=== PATIENT | female | born 1945 | race Asian ===

== ENCOUNTER → 2016-07-27 | Outpatient (CLI) | payer OTHER, MEDICAID | LOC: BMCIMAGING 10:27 | PROVIDERS: ATTEND Internal Medicine | DX: Z13.820 Encounter for screening for osteoporosis (principal); E21.0 Primary hyperparathyroidism ==

== ENCOUNTER 2016-10-11 05:56 | Emergency (ER) | payer OTHER, MEDICAID ==
--- NOTE | 2016-10-11 06:43 | EDPHY ---
H & P Stated Complaint: pt states she wants to stay here to sleep & not get others sick Time Seen by Provider: 10/11/16 06:29 HPI/ROS: Chief Complaint: Cough, cold HPI: 71-year-old resident of a [facility] presenting complaining of an upper respiratory symptoms for the past few days. Patient has had some fevers and chills at home. A cough which has been productive of some yellowish sputum. No chest pain or shortness of breath. She is concerned about getting other residents of the home sick. ROS: 10 point Review of Systems is negative except as noted in the HPI. PMH: Congestive heart failure, pulmonary hypertension, schizoaffective disorder Social History: Positive smoking, occasional alcohol, no recreational drug use Family History: non-contributory Physical Exam: Gen: Awake, Alert, No Distress HEENT: Nose: no rhinorrhea Eyes: PERRLA, EOMI Mouth: Moist mucosa Neck: Supple, no JVD Chest: nontender, lungs clear to auscultation Heart: S1, S2 normal, no murmur Abd: Soft, non-tender, no guarding Back: no CVA tenderness, no midline tenderness Ext: no edema, non-tender Skin: no rash Neuro: CN II-XII intact, Sensation grossly intact, Strength 5/5 in bilateral upper and lower extremities - Personal History Current Tetanus Diphtheria and Acellular Pertussis (TDAP): Yes - Medical/Surgical History Hx Asthma: No Hx Chronic Respiratory Disease: No Hx Diabetes: No Hx Cardiac Disease: No Hx Renal Disease: No Hx Cirrhosis: No Hx Alcoholism: No Hx HIV/AIDS: No Hx Splenectomy or Spleen Trauma: No Other PMH: BIPOLAR, HTN, ANXIETY, SLEEP APNEA,SCIATICA, pulmonary htn - Social History Smoking Status: Former smoker Constitutional: Initial Vital Signs Temperature (C) 37 C 10/11/16 06:05 Heart Rate 80 10/11/16 06:05 Respiratory Rate 22 H 10/11/16 06:05 Blood Pressure 132/93 H 10/11/16 06:05 O2 Sat (%) 95 10/11/16 06:05 O2 Delivery Mode Room Air Allergies/Adverse Reactions: lamotrigine [From Lamictal] Allergy (Verified 10/29/10 14:14) modafinil [From Provigil] Allergy (Verified 10/29/10 14:14) Home Medications: Medication Instructions Recorded clonazePAM [Klonopin (*)] 0.5 mg PO HS PRN 08/21/12 Calcium Carbonate/Vitamin D3 1 each PO DAILY 01/30/14 [Calcium 500 + Vit D Caplet] Ibuprofen [Motrin (*)] 400 mg PO Q12 PRN 01/30/14 Melatonin [Melatonin 3 MG (*)] 3 mg PO HS PRN 01/30/14 Pantoprazole Sodium [Protonix 40mg 40 mg PO DAILY 01/30/14 (*)] Polyethylene Glycol 3350 [Miralax 17 gm PO DAILY PRN 01/30/14 17 gm (*)] oxyCODONE/APAP 5/325 [Percocet 1 tab PO BID 01/30/14 5/325 (*)] Fluticasone Nasal [Flonase Nasal 1 sprays [place] DAILY PRN 03/04/15 [place]] [place] Carbonate ER [Lithobid 300 600 mg PO HS 03/04/15 mg (*)] Zolpidem Tartrate [Ambien 10 mg] 5 mg PO HS PRN #0 tablet 03/10/15 Medical Decision Making ED Course/Re-evaluation: Well-appearing 71-year-old woman with symptoms consistent with a viral upper respiratory infection. She has no focal findings on her lung exam. She is not hypoxemic on room air but she does use oxygen. Will send her home with instructions to follow up with primary care physician. No indication for antibiotics at this time. She is afebrile. Departure - Departure Disposition: Home, Routine, Self-Care Clinical Impression: URI (upper respiratory infection) Condition: Good Instructions: Upper Respiratory Infection (ED) Additional Instructions: Wash your hands frequently used hand substance addiction coordinator. Wear a mask when you with other people. Follow up with primary care physician in 2-3 days for re-evaluation. Return to the emergency department for increasing cough, shortness of breath, fevers, chills, or any other concerns. Referrals: Toyin Garcia MD [Primary Care Provider] - As per Instructions
[2016-10-11 07:20] VITALS: BP 136/76; PULSE 72; RESP 17; TEMP 97.9; O2SAT 94
== END 2016-10-11 07:21 | disposition home or self-care (01) ==
DX: J06.9 Acute upper respiratory infection, unspecified (principal); I11.0 Hypertensive heart disease with heart failure; I50.9 Heart failure, unspecified; Z87.891 Personal history of nicotine dependence

== ENCOUNTER 2016-10-12 05:33 | Emergency (ER) | payer OTHER, MEDICAID ==
--- NOTE | 2016-10-12 05:42 | EDPHY ---
H & P - Medical/Surgical History Hx Asthma: No Hx Chronic Respiratory Disease: No Hx Diabetes: No Hx Cardiac Disease: No Hx Renal Disease: No Hx Cirrhosis: No Hx Alcoholism: No Hx HIV/AIDS: No Hx Splenectomy or Spleen Trauma: No Other PMH: BIPOLAR, HTN, ANXIETY, SLEEP APNEA,SCIATICA, pulmonary htn - Social History Smoking Status: Former smoker Time Seen by Provider: 10/12/16 05:37 HPI/ROS: Chief Complaint: Suicidal, manic HPI: 71-year-old woman with a history of bipolar disorder being brought in by police on a mental health hold after multiple calls to them overnight and threatening suicidality. Patient was reportedly ongoing a knife to her neck stating she was going to kill herself. Patient has made multiple complaints to police overnight stating that staff members at her residence are trying to harm her. Patient states that she has not been taking her medications. Patient also states she want to be given benzodiazepine to help her sleep. Patient seen by me yesterday morning with cold type symptoms. No evidence of acute bacterial infection at that time. Patient denies fevers or chills. Has a dry nonproductive cough. No chest pain or shortness of breath. Does have a history of pulmonary hypertension. ROS: 10 point Review of Systems is negative except as noted in the HPI. Social History: History of smoking, denies alcohol Family History: non-contributory Physical Exam: Gen: Awake, Alert, pressured speech, tangential HEENT: Nose: no rhinorrhea Eyes: PERRLA, EOMI Mouth: Moist mucosa Neck: Supple, no JVD Chest: nontender, lungs clear to auscultation Heart: S1, S2 normal, no murmur Abd: Soft, non-tender, no guarding Back: no CVA tenderness, no midline tenderness Ext: no edema, non-tender Skin: no rash Neuro: CN II-XII intact, Sensation grossly intact, Strength 5/5 in bilateral upper and lower extremities (Gt Mcfarland) Constitutional: Initial Vital Signs Temperature (C) 36.7 C 10/12/16 05:46 Heart Rate 87 10/12/16 05:46 Respiratory Rate 20 10/12/16 05:46 O2 Sat (%) 94 10/12/16 05:46 O2 Delivery Mode Room Air O2 (L/minute) 2 Allergies/Adverse Reactions: lamotrigine [From Lamictal] Allergy (Verified 10/12/16 05:42) modafinil [From Provigil] Allergy (Verified 10/12/16 05:42) Home Medications: Medication Instructions Recorded clonazePAM [Klonopin (*)] 0.5 mg PO HS PRN 08/21/12 Calcium Carbonate/Vitamin D3 1 each PO DAILY 01/30/14 [Calcium 500 + Vit D Caplet] Ibuprofen [Motrin (*)] 400 mg PO Q12 PRN 01/30/14 Melatonin [Melatonin 3 MG (*)] 3 mg PO HS PRN 01/30/14 Pantoprazole Sodium [Protonix 40mg 40 mg PO DAILY 01/30/14 (*)] Polyethylene Glycol 3350 [Miralax 17 gm PO DAILY PRN 01/30/14 17 gm (*)] oxyCODONE/APAP 5/325 [Percocet 1 tab PO BID 01/30/14 5/325 (*)] Fluticasone Nasal [Flonase Nasal 1 sprays EACHNARE DAILY PRN 03/04/15 [place]] [place] Carbonate ER [Lithobid 300 600 mg PO HS 03/04/15 mg (*)] Zolpidem Tartrate [Ambien 10 mg] 5 mg PO HS PRN #0 tablet 03/10/15 Cephalexin [Keflex (*)] 500 mg PO TID #21 cap 10/12/16 Medical Decision Making ED Course/Re-evaluation: 71-year-old with a history of bipolar disorder presenting manic with suicidal statements and threats. She is on a mental health hold by police. Will medically cleared arranged for mental health evaluation. 0700 patient signed out to Dr. Pagan pending mental health evaluation. Patient is medically cleared for evaluation at this time. (Gt Mcfarland) Patient was given her usual Percocet at about 830 this morning. She has also been given her regular medications. 11:15 a.m. patient has been evaluated by mental health and they feel that she would be most appropriate for inpatient management. They are looking for bed placement (Janak Pagan) 5:00 p.m. patient accepted to [facility] by Dr. Mancuso. Transfer paperwork completed. (Baljit Crespo) Differential Diagnosis: Partial list of the Differential diagnosis considered include but were not limited to; bipolar, depression, suicidality and although unlikely based on the history and physical exam, I also considered substance abuse, infection. (Baljit Crespo) Care Turn Over: Dr. Crespo at 1500 (Janak Pagan) - Data Points Laboratory Results: Laboratory Results 10/12/16 05:50 10/12/16 05:50 10/12/16 10/12/16 10/12/16 07:10 07:10 06:00 WBC RBC Hgb Hct MCV MCH MCHC RDW Plt Count MPV Neut % (Auto) Lymph % (Auto) [place] % (Auto) Eos % (Auto) Baso % (Auto) Nucleat RBC Rel Count Absolute Neuts (auto) Absolute Lymphs (auto) Absolute Monos (auto) Absolute Eos (auto) Absolute Basos (auto) Absolute Nucleated RBC Immature Gran % Immature Gran # Sodium Potassium Chloride Carbon Dioxide Anion Gap BUN Creatinine Estimated GFR Glucose Calcium Urine Color YELLOW Urine Appearance CLEAR Urine pH 6.0 (5.0-7.5) Ur Specific [place] 1.006 (1.002-1.030) Urine Protein NEGATIVE (NEGATIVE) Urine Ketones NEGATIVE (NEGATIVE) Urine Blood 1+ H (NEGATIVE) Urine Nitrate NEGATIVE (NEGATIVE) Urine Bilirubin NEGATIVE (NEGATIVE) Urine Urobilinogen NEGATIVE EU EU (0.2-1.0) Ur Leukocyte Esterase 3+ H (NEGATIVE) Urine RBC 5-10 /hpf H /hpf (0-3) Urine WBC 10-15 /hpf H /hpf (0-3) Ur Epithelial Cells TRACE /lpf /lpf (NONE-1+) Urine Mucus TRACE /lpf /lpf (NONE-1+) Urine Glucose NEGATIVE (NEGATIVE) Urine Opiates Screen NEGATIVE (NEGATIVE) Urine Barbiturates NEGATIVE (NEGATIVE) Ur Phencyclidine Scrn NEGATIVE (NEGATIVE) Ur Amphetamine Screen NEGATIVE (NEGATIVE) U Benzodiazepines Scrn NON-NEGATIVE H (NEGATIVE) [place] 0.4 mEq/L L mEq/L (0.6-1.2) Urine Cocaine Screen NEGATIVE (NEGATIVE) U Marijuana (THC) Screen NEGATIVE (NEGATIVE) Ethyl Alcohol 10/12/16 10/12/16 05:50 05:50 WBC 11.41 10^3/uL H 10^3/uL (3.80-9.50) RBC 4.43 10^6/uL 10^6/uL (4.18-5.33) Hgb 13.7 g/dL g/dL (12.6-16.3) Hct 41.4 % % (38.0-47.0) MCV 93.5 fL fL (81.5-99.8) MCH 30.9 pg pg (27.9-34.1) MCHC 33.1 g/dL g/dL (32.4-36.7) RDW 13.0 % % (11.5-15.2) Plt Count 246 10^3/uL 10^3/uL (150-400) MPV 11.0 fL fL (8.7-11.7) Neut % (Auto) 77.2 % H % (39.3-74.2) Lymph % (Auto) 13.1 % L % (15.0-45.0) York % (Auto) 8.0 % % (4.5-13.0) Eos % (Auto) 0.7 % % (0.6-7.6) Baso % (Auto) 0.6 % % (0.3-1.7) Nucleat RBC Rel Count 0.0 % % (0.0-0.2) Absolute Neuts (auto) 8.81 10^3/uL H 10^3/uL (1.70-6.50) Absolute Lymphs (auto) 1.50 10^3/uL 10^3/uL (1.00-3.00) Absolute Monos (auto) 0.91 10^3/uL H 10^3/uL (0.30-0.80) Absolute Eos (auto) 0.08 10^3/uL 10^3/uL (0.03-0.40) Absolute Basos (auto) 0.07 10^3/uL 10^3/uL (0.02-0.10) Absolute Nucleated RBC 0.00 10^3/uL 10^3/uL (0-0.01) Immature Gran % 0.4 % % (0.0-1.1) Immature Gran # 0.04 10^3/uL 10^3/uL (0.00-0.10) Sodium 140 mEq/L mEq/L (134-144) Potassium 4.2 mEq/L mEq/L (3.5-5.2) Chloride 108 mEq/L mEq/L (97-110) Carbon Dioxide 20 mEq/l L mEq/l (22-31) Anion Gap 12 mEq/L mEq/L (8-16) BUN 14 mg/dL mg/dL (7-23) Creatinine 0.8 mg/dL mg/dL (0.6-1.0) Estimated GFR > 60 Glucose 103 mg/dL H mg/dL (70-100) Calcium 10.6 mg/dL H mg/dL (8.5-10.4) Urine Color Urine Appearance Urine pH Ur Specific [place] Urine Protein Urine Ketones Urine Blood Urine Nitrate Urine Bilirubin Urine Urobilinogen Ur Leukocyte Esterase Urine RBC Urine WBC Ur Epithelial Cells Urine Mucus Urine Glucose Urine Opiates Screen Urine Barbiturates Ur Phencyclidine Scrn Ur Amphetamine Screen U Benzodiazepines Scrn [place] Urine Cocaine Screen U Marijuana (THC) Screen Ethyl Alcohol < 10 mg/dL mg/dL (0-10) Medications Given: Discontinued Medications Cephalexin HCl (Keflex) 500 mg PO EDNOW ONE PRN Reason: Protocol Stop: 10/12/16 11:06 Last Admin: 10/12/16 11:35 Dose: 500 mg Clonazepam (Klonopin) 0.5 mg PO EDNOW ONE Stop: 10/12/16 11:31 Last Admin: 10/12/16 11:30 Dose: 0.5 mg Olanzapine (Olanzapine) 5 mg PO ONCE ONE Stop: 10/12/16 06:33 Last Admin: 10/12/16 06:32 Dose: 5 mg Olanzapine (Olanzapine) 5 mg PO EDNOW ONE Stop: 10/12/16 07:53 Last Admin: 10/12/16 07:53 Dose: 5 mg Oxycodone/Acetaminophen (Percocet 5/325) 1 tab PO EDNOW ONE Stop: 10/12/16 08:15 Last Admin: 10/12/16 08:14 Dose: 1 tab Departure - Departure Disposition: Other Psych, Not [place] Clinical Impression: Bipolar 1 disorder Condition: Fair Instructions: Urinary Tract Infection in Women (ED), Bipolar Disorder (ED) Additional Instructions: You have a urinary tract infection. Please take cephalexin 1 pill 3 times daily for total of 1 week. You have been given her 1st doses in the emergency department Referrals: Toyin Garcia MD [Primary Care Provider] - As per Instructions Prescriptions: Cephalexin [Keflex (*)] 500 mg PO TID #21 cap
[2016-10-12 05:59] LABS: % IMMATURE GRANULYOCYTES 0.4 % (0.0-1.1); ABSOLUTE IMMATURE GRANULOCYTES 0.04 10^3/uL (0.00-0.10); ADD DIFF? NO; ADD MORPH? NO; ADD SCAN? NO; ATYPICAL LYMPHOCYTE FLAG 10 (0-99); FRAGMENT RBC FLAG 0 (0-99); HEMATOCRIT 41.4 % (38.0-47.0); HEMOGLOBIN 13.7 g/dL (12.6-16.3); LEFT SHIFT FLG 0 (0-99); LIPEMIA HEMOLYSIS FLAG 80 (0-99); MEAN CELL HEMOGLOBIN 30.9 pg (27.9-34.1); MEAN CELL HEMOGLOBIN CONCENTR. 33.1 g/dL (32.4-36.7); MEAN CELL VOLUME 93.5 fL (81.5-99.8); PLATELET CLUMPS FLAG 0 (0-99); PLATELET COUNT 246 10^3/uL (150-400); RED BLOOD CELL COUNT 4.43 10^6/uL (4.18-5.33)
[2016-10-12 06:16] LABS: ANION GAP 12 mEq/L (8-16); CALCIUM 10.6 mg/dL (8.5-10.4); CARBON DIOXIDE 20 mEq/l (22-31); CHLORIDE 108 mEq/L (97-110); CREATININE 0.8 mg/dL (0.6-1.0); ETHANOL SERUM < 10 mg/dL (0-10); GLOMERULAR FILTRATION RATE > 60; GLUCOSE 103 mg/dL (70-100); POTASSIUM 4.2 mEq/L (3.5-5.2); SODIUM 140 mEq/L (134-144)
[2016-10-12] MEDS ORDERED: OLANZapine 5 MG TAB ONE (06:26)
[2016-10-12] MEDS ORDERED: OLANZapine 5 MG TAB PO ONE ×2 (06:32→07:52)
[2016-10-12] MEDS ORDERED: OXYCODONE/APAP 5/325 TAB ONE (08:04)
[2016-10-12] MEDS ORDERED: OXYCODONE/APAP 5/325 TAB PO ONE (08:14)
[2016-10-12 08:24] VITALS: RESP 16
[2016-10-12 10:07] LABS: LITHIUM 0.4 mEq/L (0.6-1.2)
[2016-10-12 10:47] LABS: COLOR YELLOW; LEUKOCYTE ESTERASE,URINE 3+ (NEGATIVE); NITRITE,URINE NEGATIVE (NEGATIVE)
[2016-10-12 10:52] LABS: MUCUS TRACE /lpf (NONE-1+)
[2016-10-12] MEDS ORDERED: CEPHALEXIN 500 MG CAP PO ONE ×2 (11:05→18:09)
[2016-10-12] MEDS ORDERED: clonazePAM 0.5 MG TAB PO ONE (11:30)
[2016-10-12] MEDS ORDERED: clonazePAM 0.5 MG TAB ONE (11:32)
[2016-10-12 16:00] VITALS: O2SAT 92
[2016-10-12 19:26] VITALS: BP 125/78; PULSE 84; TEMP 97.9
== END 2016-10-12 19:24 ==
DX: F31.9 Bipolar disorder, unspecified (principal); I10 Essential (primary) hypertension; Z87.891 Personal history of nicotine dependence
CPT/HCPCS: 80305; G0480

== ENCOUNTER 2016-10-20 14:49 | Observation (INO) | payer OTHER, MEDICAID ==
[2016-10-20] MEDS ORDERED: NALOXONE HCL 0.4 MG/ML INJ ONE (16:22)
[2016-10-20] MEDS ORDERED: NS 1,000 ML IV ONE (16:24)
[2016-10-20] MEDS ORDERED: NALOXONE HCL 0.4 MG/ML INJ IVP ONE (16:24)
--- NOTE | 2016-10-20 16:31 | EDPHY ---
H & P Time Seen by Provider: 10/20/16 15:43 HPI/ROS: HPI Over sedation. 71-year-old female by private vehicle with [id number]. Patient has a history bipolar disorder and was recently admitted to [facility] for manic behavior. She was discharged from [facility] today and her fcqfum-gn-nuk reports that she was very drowsy when they discharged her. She had to be taking to the zvtixi-wr-thm scar in a wheelchair with assist to get her into the car. She is currently prescribed Risperdal, lithium and Percocet. The daughter does not know which she was given while she was at [place]. The nursing staff currently looking into this. There is no history of trauma. ROS: Constitutional: No fever, no chills. No weakness. Eyes: No discharge. No changes in vision. ENT: No sore throat. No nasal congestion or rhinorrhea. Respiratory: No cough. No shortness of breath. Cardiac: No chest pain, no palpitations. Gastrointestinal: No abdominal pain, no vomiting, no diarrhea. Genitourinary: No hematuria. No dysuria or increased frequency with urination. Musculoskeletal: No back pain. No neck pain. No myalgias or arthralgias. Skin: No rashes. Neurological: No headache. No focal weakness or altered sensation. Past medical history: Bipolar, hypertension, anxiety, sleep apnea, pulmonary hypertension Social history: Here with her efuicd-xc-kpo. She currently lives at a special needs home/assisted living facility called the [facility]. Nonsmoker. No alcohol. Physical Exam: General Appearance: Sleepy but arousable to voice. This patient is responding to questions short, 1 were applied. This patient appears well-hydrated and well -nourished. Eyes: Pupils equal and round and reactive to light at 3-2 mm no pallor or injection. No lid edema, erythema or injection. ENT, Mouth: Mucous membranes are moist. The pharyngeal tissues are unremarkable. No edema or swelling. No asymmetry suggestive of abscess. No erythema or exudates. No tongue lacerations or abrasions. Respiratory: There are no retractions, lungs are clear to auscultation with good air movement bilaterally. Cardiovascular: Regular rate and rhythm. No murmur. Gastrointestinal: Abdomen is soft and nontender, no masses, bowel sounds normal. No focal tenderness at [facility]'s point. No Kelley sign. Neurological: Motor sensory function is grossly intact. Cranial nerves are normal. Musculoskeletal: Neck is supple and nontender. Extremities are symmetrical. All joints range without pain or impingement. Psychiatric: No agitation. No depression. Database: EKG: Imaging: CT head without contrast: Negative. Results were discussed with staff radiologist Dr. Selvin Amaya. Procedures: Emergency department course: IV placed. She was placed on a monitor. She was started on IV normal saline with 500 cc to be given over the next hour. [place] levels will be evaluated. Standard tox screens sent. Suspect probable narcotic overdose. She will be given 0.4 mg of IV Narcan. Patient has been monitored closely during her emergency department course. She has become a little more awake. She had no response to the IV Narcan as above. We did contact [facility]. They stated that the only medication she was given while there included Risperdal, her prescribe Percocet and lithium. Her lithium level is unremarkable. Her serum alcohol is unremarkable. She has a negative CT scan of her head without contrast. 6:00 p.m., the patient is sitting upright in bed now she is still drowsy. Her bdtzsm-pl-hnt tells me that she will not be accepted back to her care facility. We will admit this patient for observation overnight in our hospital. Spoke with on-call hospitalist, . He accepts the patient for admission. Patient admitted in stable condition. Differential Diagnosis: The differential diagnosis on this patient includes but is not limited to narcotic overdose, alcohol intoxication, lithium toxicity. This represents a partial list of diagnoses considered. These considerations are based on history , physical exam, past history, reassessment and diagnostic testing. Smoking Status: Former smoker Constitutional: Initial Vital Signs Temperature (C) 36.6 C 10/20/16 14:56 Heart Rate 81 10/20/16 14:56 Respiratory Rate 16 10/20/16 14:56 Blood Pressure 104/61 10/20/16 14:56 O2 Sat (%) 96 10/20/16 14:56 O2 Delivery Mode Nasal Cannula O2 (L/minute) 2 Allergies/Adverse Reactions: lamotrigine [From Lamictal] Allergy (Verified 10/12/16 05:42) modafinil [From Provigil] Allergy (Verified 10/12/16 05:42) Home Medications: Medication Instructions Recorded [place] Carbonate [[place] 300 mg PO HS 10/20/16 Carbonate Cap 300 mg (*)] [place] Carbonate [[place] 600 mg PO DAILY 10/20/16 Carbonate Cap 300 mg (*)] Omeprazole 40 mg PO DAILY 10/20/16 oxyCODONE/APAP 5/325 [Percocet 1 tab PO BID PRN 10/20/16 5/325 (*)] risperiDONE [Risperdal 0.5mg (*)] 0.5 mg PO BID 10/20/16 Medical Decision Making - Data Points Laboratory Results: Laboratory Results 10/20/16 16:30 10/20/16 16:30 Medications Given: Discontinued Medications Sodium Chloride (Ns) 1,000 mls @ 0 mls/hr IV ONCE ONE; Wide Open PRN Reason: Protocol Stop: 10/20/16 16:25 Last Admin: 10/20/16 17:00 Dose: 1,000 mls Naloxone HCl (Narcan) 0.4 mg IVP EDNOW ONE Stop: 10/20/16 16:25 Last Admin: 10/20/16 16:32 Dose: 0.4 mg Departure - Departure Disposition: [facility] Clinical Impression: Altered mental status Condition: Good
[2016-10-20 16:52] LABS: % IMMATURE GRANULYOCYTES 0.4 % (0.0-1.1); ABSOLUTE IMMATURE GRANULOCYTES 0.04 10^3/uL (0.00-0.10); ADD DIFF? NO; ADD MORPH? NO; ADD SCAN? NO; ATYPICAL LYMPHOCYTE FLAG 10 (0-99); FRAGMENT RBC FLAG 0 (0-99); HEMATOCRIT 38.4 % (38.0-47.0); HEMOGLOBIN 12.3 g/dL (12.6-16.3); LEFT SHIFT FLG 0 (0-99); LIPEMIA HEMOLYSIS FLAG 80 (0-99); MEAN CELL HEMOGLOBIN 30.9 pg (27.9-34.1); MEAN CELL VOLUME 96.5 fL (81.5-99.8); MEAN PLATELET VOLUME 10.2 fL (8.7-11.7); PLATELET CLUMPS FLAG 0 (0-99); PLATELET COUNT 223 10^3/uL (150-400); RED BLOOD CELL COUNT 3.98 10^6/uL (4.18-5.33); RED CELL DISTRIBUTION WIDTH 12.9 % (11.5-15.2)
[2016-10-20 17:13] LABS: ANION GAP 11 mEq/L (8-16); CALCIUM 10.2 mg/dL (8.5-10.4); CARBON DIOXIDE 20 mEq/l (22-31); CHLORIDE 106 mEq/L (97-110); CREATININE 0.7 mg/dL (0.6-1.0); GLOMERULAR FILTRATION RATE > 60; GLUCOSE 91 mg/dL (70-100); POTASSIUM 3.9 mEq/L (3.5-5.2); SODIUM 137 mEq/L (134-144)
[2016-10-20 17:26] LABS: ETHANOL SERUM < 10 mg/dL (0-10); LITHIUM 1.2 mEq/L (0.6-1.2)
[2016-10-20] MEDS ORDERED: ONDANSETRON DISINTEGRATING 4 MG TAB PO PRN (20:39)
[2016-10-20] MEDS ORDERED: ACETAMINOPHEN 325 MG TAB PO PRN (20:39)
[2016-10-20] MEDS ORDERED: ONDANSETRON 4 MG/2 ML VIAL IVP PRN (20:39)
[2016-10-20] MEDS ORDERED: OXYCODONE/APAP 5/325 TAB PO PRN (20:40)
[2016-10-20] MEDS ORDERED: LITHIUM CARBONATE 300 MG CAP PO SCH (21:00)
--- NOTE | 2016-10-20 21:24 | GHP ---
[f rep st] HISTORY AND PHYSICAL DATE OF ADMISSION: 10/20/2016 CHIEF COMPLAINT: Altered mental status. HISTORY OF PRESENT ILLNESS: A 71-year-old female with a history of bipolar. She was hospitalized i npatient at [place], and was discharged today. Her daughter picked her up, and she was quite somn olent. They had to wheel her out by wheelchair. Due to her somnolence, she was brought here to the emergency department. She is a little bit better this afternoon. She states she was in the hospit al for 10 days. She feels a little bit over-sedated. She said over the last 3 days, she has had to make herself get up and eat and smoke cigarettes. She denies any fevers or chills. No dysuria. S he states that she did have a urinary tract infection about a week ago, and completed a course of an tibiotics. REVIEW OF SYSTEMS: A 10-point review of systems was obtained. Other than stated above, was negativ e. PAST MEDICAL HISTORY: Bipolar. MEDICATIONS: Reviewed. It appears that the risperidone was what was added during her hospitalizati on. SOCIAL HISTORY: Positive smoking. Lives at a [facility]. FAMILY HISTORY: Reviewed and noncontributory. PHYSICAL EXAM: VITAL SIGNS: Afebrile. Blood pressure is 117/76, heart rate 75, oxygen saturation 95% on room air. GENERAL: The patient is well developed, no apparent distress. HEENT: Nonicteric sclerae. Extraocular movements intact. Moist mucous membranes. NECK: Supple. No thyromegaly. LUNGS: Good effort. Clear to auscultation bilaterally. CARDIOVASCULAR: Regular rate and rhythm. There is a 2/6 systolic murmur heard best at the left lower sternal border. ABDOMEN: Positive bow el sounds. Soft, nontender, nondistended. No hepatosplenomegaly. EXTREMITIES: No clubbing, cyano sis, or edema. SKIN: Without rash. Warm, dry, intact. NEUROLOGIC: Alert and oriented x3. Movin g all 4 extremities equally. PSYCHIATRIC: Normal mood and affect. LABS: White count 10, hemoglobin 12. Chemistries normal. TSH is a little bit low. Floyd is 1.[address] scan of the head is negative. ASSESSMENT AND PLAN: This is a 71-year-old female who has a history of bipolar, recently discharged from inpatient psychiatric hospital, presenting with somnolence. 1. Somnolence. It is possible patient is being overmedicated somewhat by her Risperdal. I am yris g to hold that today. Her lithium levels are normal, though are therapeutic, and we will continue t hat. We will have to get Psychiatry see her in the morning. I suspect she can be discharged tomorr ow with maybe some medication adjustments. 2. Recent urinary tract infection. Because of her slightly elevated white blood cell count, we gurvinder l go ahead and get a urine. I am not sure if I would treat a positive UA, but we can think about it once the result comes back. 3. Admission. Patient will be admitted under observation status. Case was discussed with the remy mccain physician. /[id number]/MODL
[2016-10-21] MEDS: FLUTICASONE NASAL 120 SPRAYS/16 GM MDI EACHNARE SCH ×3 (03:39→13:34)
[2016-10-21 03:53] LABS: COLOR YELLOW; LEUKOCYTE ESTERASE,URINE NEGATIVE (NEGATIVE); NITRITE,URINE NEGATIVE (NEGATIVE)
[2016-10-21] MEDS ORDERED: PANTOPRAZOLE SODIUM 40 MG TAB PO SCH (09:00)
[2016-10-21] MEDS ORDERED: risperiDONE 0.5 MG TAB PO SCH (11:46)
[2016-10-21] MEDS ORDERED: LITHIUM CARBONATE 300 MG CAP PO SCH (12:00)
--- NOTE | 2016-10-21 15:14 | HOSPPROG ---
Hospitalist Progress Note Assessment/Plan: 71y female, lethargic to ED. This is my first encounter, chart reviewed. D/W CM. #Bipolar hx of grover dc from psych facility 10/20 cont meds psych eval ordered cooperative #AMS resolved #Dispo unclear, await psych eval lives at [facility] D/W CM will stay until psych eval and ok to return home Subjective: Up walking around. No specific complaints. Objective: Vital Signs Temp Pulse Resp BP Pulse Ox 36.6 C 65 18 113/57 L 94 10/21/16 10:57 10/21/16 10:57 10/21/16 10:57 10/21/16 10:57 10/21/16 10:57 10/20/16 10/21/16 10/22/16 05:59 05:59 05:59 Intake Total 200 Balance 200 - Physical Exam Constitutional: no apparent distress, appears nourished, not in pain Eyes: PERRL, anicteric sclera, EOMI Ears, Nose, Mouth, Throat: moist mucous membranes, hearing normal, ears appear normal Cardiovascular: No JVD, No tachycardia, No edema Respiratory: no respiratory distress, no rales or rhonchi, reduced air movement Gastrointestinal: No tenderness, No ascites, No guarding Skin: warm, normal color, No erythema Musculoskeletal: full muscle strength, normal joint ROM, no joint effusions Psychiatric: not anxious, poor insight, poor judgement, poor memory ICD10 Worksheet Patient Problems: Problems Problem Status Onset CHF (congestive heart failure) Acute Acute respiratory failure Acute Chronic Disease Mgmt/Transitional Care Acute JUAN R (obstructive sleep apnea) Acute Pulmonary hypertension Acute Hypoxia Acute History of pulmonary hypertension Acute Chest pain Acute Chronic hypoxemic respiratory failure Acute Lethargy Acute Encephalopathy chronic Acute Altered mental status Acute
[2016-10-21 15:24] VITALS: BP 120/83; PULSE 77; RESP 16; TEMP 98.3; O2SAT 93
--- NOTE | 2016-10-21 16:53 | PDIAF ---
- Diagnosis Diagnosis: ams Code Status: Full Code - Medication Management Discharge Medications: Medications to Continue on Transfer [place] Carbonate [[place] Carbonate Cap 300 mg (*)] 300 mg PO HS 10/20/16 [ Last Taken Unknown] [place] Carbonate [[place] Carbonate Cap 300 mg (*)] 600 mg PO DAILY 10/20/16 [ Last Taken Unknown] Omeprazole 40 mg PO DAILY 10/20/16 [Last Taken Unknown] oxyCODONE/APAP 5/325 [Percocet 5/325 (*)] 1 tab PO BID PRN 10/20/16 [Last Taken Unknown] risperiDONE [Risperdal 0.5mg (*)] 0.5 mg PO BID 10/20/16 [Last Taken Unknown] Acetaminophen [Tylenol 325mg (*)] 650 mg PO Q4HRS PRN #0 tab 10/21/16 [Last Taken Unknown] Melatonin [Melatonin 3 MG (*)] 3 mg PO HS #1 tab 10/21/16 [Last Taken Unknown] Zolpidem Tartrate [Ambien 10 mg] 10 mg PO HS #1 tablet 10/21/16 [Last Taken Unknown] clonazePAM [Klonopin (*)] 0.5 mg PO DAILY PRN #1 tab 10/21/16 [Last Taken Unknown] Discharge Medications: Refer to the Discharge Home Medication list for PRN reason. PICC Care - Routine: N/A - Orders Services needed: Home Long Term Care Face to Face: I certify that this patient was under my care and that I had the required [id number] encounter meeting the encounter requirements on the discharge day. My findings support the fact that the patient is homebound as defined in CMS Chapter 7 Medicare Benefits Manual 30.1.1, The condition of the patient is such that there exists a normal inability to leave home and consequently, leaving home would require a considerable and taxing effort. - Follow Up Care Current Providers and Referrals: Toyin Garcia MD [Primary Care Provider] - As per Instructions
--- NOTE | 2016-10-21 20:04 | GCON ---
[f rep st] CONSULTATION IDENTIFICATION: The patient presents as a 71-year-old single [place] female, who is a resident at the [facility]. She is identified psychiatric outpatient with [facility], followed by psychiatrist, Dr. Heber Arguello, as well as a supportive psychotherapist. The patient was admitted to [address] [place] [address] via the [facility] emergency room for complaints of somnolence; the patient had been discharged earlier on the day of her admission to [facility] on from the psychiatric inpatient service-[place]. She was unable to be stepped down to her resident [facility] because of her somnolent state associated with an inability to ambulate safely. She was seen in the emergency room and the decision made to admit her to Medicine for overnight management and reassessment today. CONSULTATIVE REQUEST: Psychiatry was asked to see the patient to assess her mental status and advise on dispositional planning. HOSPITAL COURSE: The patient was brought to the [facility] emergency room by private car and with her family member, a [id number]. On assessment in the emergency room, the patient was found to be significantly somnolent, able to alert sufficiently for limited verbal responses. Her physical exam was unremarkable other than for the significant state of somnolence. Lab screens included a head CT, which was within normal limits, negative lab screens including a CBC, serum chemistries, urinalysis, toxic screen. Screens were unremarkable and/or within normal limits, other than toxic screen positive for benzodiazepines associated with prescribed Ativan during patient's inpatient psychiatric course of treatment at [facility]. The patient's blood alcohol level was also negative. Serum lithium was measured at 1.2. As referenced, patient was sent on for admission to [address] [place] [address] for further observation and medical management p.r.n. Since admission in the p.m. to [address] [place] [address], patient has progressively alerted. She has complied with cares and meds. Prescribed medications including her psychiatric medications as discharged from [facility] include: lithium carbonate 600 mg q.a.m. and 300 mg h.s., Risperdal 0.5 mg b.i.d., and Percocet 5/325 one tablet b.i.d. p.r.n. Additional home medications as part of maintenance regimen at her [facility] prior to her reported manic decompensation which led to the inpatient admission at [facility] included: Melatonin 3 mg h.s. p.r.n., Ambien 10 mg h.s. p.r.n., and Klonopin 0.5 mg p.r.n. Further intake information from the Turbine Technician Clinical Director at patient's resident [facility], indicates the patient was also taking Ritalin 10 mg on a 1 to 1-1/2 tablet basis daily p.r.n. for an extended period of time prior to her admission to [facility]. We do not have the details of patient's inpatient course a [facility] available but we do know the patient did not continue Ritalin , Melatonin, Ambien, and Klonopin during her inpatient course. We also know the Risperdal 0.5 mg b.i.d. was added to her lithium carbonate. Her lithium carbonate regimen was apparently being taken consistently prior to decompensation leading to her inpatient course of treatment. Today, the patient has presented as increasingly alert, oriented x4, conversant. She has regained her capacity to ambulate and resume ADL functions. MENTAL STATUS EXAM: On direct exam, the patient presents as a youthful- appearing 71-year-old Fijian woman. She is calm, cooperative, and conversant. There is no evidence for psychosis. The patient's affective state is mildly elevated, not to the level of hypomania but consistent with mild clinical excitement. She answers questions appropriately and appears to have full reality testing capacity. The patient states she is looking forward to discharge later today and return to her [facility] residence. She is aware of her current medications and the importance of continuing them. She is not precise in describing reasons for her reported manic decompensation prior to admission. She also is not clear as to what caused the state of somnolence at time of her discharge from the inpatient psychiatric service yesterday a.m. IMPRESSION: The patient has a known chronic history of Bipolar Disorder. Intake data given to me by telephone with the staff at her [facility] indicate the patient had been unstable with a sustained hypomanic/manic regression for a period of 6 to 8 weeks prior to her admission to the [facility] inpatient [facility]. The reasons for the extended manic regression are unclear but may have been associated with inadequate medication coverage and possible toxic reaction to the Ritalin dosing daily as referenced above. Equally unclear is the reason for patient's somnolence at discharge yesterday a.m. This may have been a result of an initial sensitive sedating reaction to Risperdal, which is a new medication for this patient to take. She also was receiving Ativan p.r.n. and the polypharmacy regimen utilized at [facility] in a cumulative fashion may have had a sedating affect on the patient. Equally unclear, is why the patient was discharged in a somnolent state such that she could not be received for readmission to her [facility]. The somnolence has resolved sufficiently that patient looks appropriate to be discharged and be readmitted to the [facility]. PLAN: 1. The patient will be reassessed by Nursing to reassess her gait stability and capacity for managing ADLs, which had been reported as much improved; this step will be done with a followup call between Nursing and the staff at her [facility] to confirm her readiness for discharge. 2. Medications at discharge should include continuing her lithium carbonate, Percocet, and Risperdal as currently dosed. The [facility] does not have Risperdal available at the residence and presuming discharge occurs today, I will call in a Risperdal script for the [facility] to picker/puller. 3. I have advised the [facility] staff that upon resuming the p.r.n. medications she was taking prior to admission as a psychiatric inpatient, which essentially are the melatonin, Ambien, and Klonopin as referenced above, I will suggest that these medications be added to the discharge medication list from [address] [place] [address]. However, I suggest to the [facility] staff that she not be given Ambien 10 mg p.r.n. tonight, even if requested and to be conservative in whether to provide the melatonin and Klonopin at h.s. p.r.n. on her 1st night back, to ensure that her mental status stays free of any re-emerging somnolence. 4. For psychiatric followup, will include an outreach appointment by patient's psychotherapist to the [facility] tomorrow morning at 8:30; the patient has a followup appointment with her [facility] psychiatrist, Dr. Arguello, on 10/05. /[id number]/MODL MTDD
--- NOTE | 2016-10-22 04:05 | GDS ---
[f rep st] DISCHARGE SUMMARY DISCHARGE DIAGNOSES: 1. Altered mental status. 2. History of bipolar disorder. CONSULTATIONS: Psychiatry. HOSPITAL COURSE: The patient is a 71-year-old female, who presented to the emergency room with complaints of altered mental status. During this hospitalization, her medications were held. She received a consultation from Psychiatry. Medication adjustments were made. DISPOSITION: The patient appears to have returned to her baseline mentation and will be discharged home to return to [facility] where she normally resides. PENDING STUDIES: There are no pending studies. DISCHARGE MEDICATIONS: Please refer to EMR form. The patient has had medication adjustments including Ambien, Klonopin, melatonin. FOLLOWUP: Followup will be with her primary care physician, Dr. Toyin Garcia, as well as Psychiatry as indicated. I have discussed the patient's disposition with the correctional case manager. /[id number]/MODL MTDD
== END 2016-10-21 18:20 ==
LOC: F3E 19:54
PROVIDERS: ADMIT Internal Medicine; ATTEND Internal Medicine
DX: R41.82 Altered mental status, unspecified (principal); F31.9 Bipolar disorder, unspecified; I10 Essential (primary) hypertension; I27.2 Other secondary pulmonary hypertension
CPT/HCPCS: 70450; 96361; 96374; 97165; 99253; 99285; G0378; G8987; G8988; G8989; J2310; 80305; G0480

== ENCOUNTER 2016-10-23 23:47 | Observation (INO) | payer OTHER, MEDICAID ==
--- NOTE | 2016-10-23 23:58 | CPEKG ---
Heart Rate: 65 RR Interval: 923 P-R Interval: 176 QRSD Interval: 78 QT Interval: 432 QTC Interval: 450 P Bayonne: 52 QRS Bayonne: 42 T Wave Bayonne: 66 EKG Severity - NORMAL ECG - EKG Impression: SINUS RHYTHM Electronically Signed By: Danielle Hansen 24-Oct-2016 02:00:01
[2016-10-24 00:06] LABS: % IMMATURE GRANULYOCYTES 0.4 % (0.0-1.1); ABSOLUTE IMMATURE GRANULOCYTES 0.04 10^3/uL (0.00-0.10); ADD DIFF? NO; ADD MORPH? NO; ADD SCAN? NO; ATYPICAL LYMPHOCYTE FLAG 20 (0-99); FRAGMENT RBC FLAG 20 (0-99); HEMATOCRIT 39.6 % (38.0-47.0); HEMOGLOBIN 12.8 g/dL (12.6-16.3); LEFT SHIFT FLG 0 (0-99); LIPEMIA HEMOLYSIS FLAG 80 (0-99); MEAN CELL HEMOGLOBIN 30.8 pg (27.9-34.1); MEAN CELL HEMOGLOBIN CONCENTR. 32.3 g/dL (32.4-36.7); MEAN CELL VOLUME 95.4 fL (81.5-99.8); MEAN PLATELET VOLUME 10.4 fL (8.7-11.7); PLATELET CLUMPS FLAG 10 (0-99); PLATELET COUNT 277 10^3/uL (150-400); RED BLOOD CELL COUNT 4.15 10^6/uL (4.18-5.33); RED CELL DISTRIBUTION WIDTH 12.9 % (11.5-15.2)
[2016-10-24 00:12] LABS: PROTIME(PATIENT) 13.1 SEC (12.0-15.0)
[2016-10-24 00:15] LABS: ALANINE AMINOTRANSFERASE 44 IU/L (9-52); ALBUMIN 4.1 g/dL (3.5-5.0); ALKALINE PHOSPHATASE 62 IU/L (38-126); ANION GAP 10 mEq/L (8-16); ASPARTATE AMINOTRANSFERASE 33 IU/L (14-46); BILIRUBIN,TOTAL 0.7 mg/dL (0.1-1.4); BILIRUBIN-CONJUGATED 0.4 mg/dL (0.0-0.5); BILIRUBIN-UNCONJUGATED 0.3 mg/dL (0.0-1.1); CALCIUM 11.1 mg/dL (8.5-10.4); CARBON DIOXIDE 25 mEq/l (22-31); CHLORIDE 104 mEq/L (97-110); CREATININE 0.9 mg/dL (0.6-1.0); GLOMERULAR FILTRATION RATE > 60; GLUCOSE 118 mg/dL (70-100); LITHIUM 1.3 mEq/L (0.6-1.2); POTASSIUM 4.1 mEq/L (3.5-5.2); SODIUM 139 mEq/L (134-144); TOTAL PROTEIN 7.1 g/dL (6.3-8.2)
[2016-10-24 00:27] LABS: TROPONIN I < 0.012 ng/mL (0-0.034)
--- NOTE | 2016-10-24 00:29 | EDPHY ---
H & P Source: Patient, EMS Exam Limitations: No limitations - Medical/Surgical History Hx Asthma: No Hx Chronic Respiratory Disease: No Hx Diabetes: No Hx Cardiac Disease: No Hx Renal Disease: No Hx Cirrhosis: No Hx Alcoholism: No Hx HIV/AIDS: No Hx Splenectomy or Spleen Trauma: No Other PMH: BIPOLAR, HTN, ANXIETY, SLEEP APNEA, SCIATICA, pulmonary htn - Social History Smoking Status: Former smoker HPI/ROS: CHIEF COMPLAINT: Chest Pain HISTORY OF PRESENT ILLNESS: Patient complains of chest pain. This started approximately 6:00 p.m. while at rest. Retrosternal chest pain that radiates to the left side of the chest. 8/10 pain. Nausea but no vomiting. No diaphoresis. No shortness of breath. Minimally ambulatory but it was worse. This lasted for approximately 3 hours and then improved but not resolved. She feels that the pain is related to allergies and not anything more significant. Pain returned shortly after, but she called 911. They administered aspirin and at time of arrival her pain was 2/10. She still complaining of the same pain in the chest. She has no lower extremity erythema edema or pain. She has no recent travel or surgery. She is not on any anticoagulants. FAMILY HISTORY CARDIAC: Positive for coronary artery disease in the family PRIOR CARDIAC WORKUP: Heart catheterization March 2015 which revealed likely vasospasm REVIEW OF SYSTEMS: Ten systems reviewed and are negative unless otherwise noted in the HPI EXAMINATION: General Appearance: Alert, no distress Head: normocephalic, atraumatic Eyes: Pupils equal and round, no conjunctival pallor or injection ENT, Mouth: Mucous membranes moist. Uvula midline. Neck: Normal inspection, supple, non-tender Respiratory: Mild rhonchi. No wheezing, crackles or diminishment. Cardiovascular: Regular rate and rhythm. No murmur. Gastrointestinal: Abdomen is soft and nontender Back: non-tender, no bony abnormalities Neurological: A&O, nonfocal, normal gait Skin: Warm and dry, no rash Extremities: Nontender, no pedal edema Psychiatric: Mood and affect normal DIFFERENTIAL DIAGNOSES: Including but not limited to in no particular order: Acute Chest Pain, ACS, Stable Angina, Pneumonia, PE, duodenitis, gastritis, esophagitis, GERD MDM: 12:05 a.m. Chest pain this started approximately 6:00 p.m. this evening. This was a retrosternal chest pain that persisted for several hours and then improved. Currently 06/11. Abnormal EKG that is unchanged from previous with inverted T- waves in the anterior lateral leads. No acute distress. Vital signs stable. Plan for admission for ACS rule out further care. 12:40 a.m. Chest pain of approximately 6 hours duration. First troponin is negative. Given the patient's medical history I will admit the patient for observation for ACS rule out. I discussed the case with Dr. Alvarez, and He will admit the patient to his care. The patient is comfortable with this and prefers to be admitted. She says that she still feels terrible and does not wish to be discharged home. EKG: Interpreted by Dr. Hansen Normal sinus rhythm with inverted T-waves anterolaterally. No change from last 2 EKGs in our system SUPERVISION: Patient was evaluated in conjunction with the supervising physician. Please see their note for details. (Pilo Whatley) Constitutional: Initial Vital Signs Temperature (C) 36.5 C 10/23/16 23:50 Heart Rate 62 10/23/16 23:50 Respiratory Rate 16 10/23/16 23:50 Blood Pressure 117/58 L 10/23/16 23:50 O2 Sat (%) 97 10/23/16 23:50 O2 Delivery Mode Nasal Cannula O2 (L/minute) 2 Allergies/Adverse Reactions: lamotrigine [From Lamictal] Allergy (Verified 10/12/16 05:42) modafinil [From Provigil] Allergy (Verified 10/12/16 05:42) Home Medications: Medication Instructions Recorded Thompson Carbonate [Thompson 300 mg PO HS 10/20/16 Carbonate Cap 300 mg (*)] Thompson Carbonate [Thompson 600 mg PO DAILY 10/20/16 Carbonate Cap 300 mg (*)] Omeprazole 40 mg PO DAILY 10/20/16 oxyCODONE/APAP 5/325 [Percocet 1 tab PO BID PRN 10/20/16 5/325 (*)] risperiDONE [Risperdal 0.5mg (*)] 0.5 mg PO BID 10/20/16 Acetaminophen [Tylenol 325mg (*)] 650 mg PO Q4HRS PRN #0 tab 10/21/16 Melatonin [Melatonin 3 MG (*)] 3 mg PO HS #1 tab 10/21/16 Zolpidem Tartrate [Ambien 10 mg] 10 mg PO HS #1 tablet 10/21/16 clonazePAM [Klonopin (*)] 0.5 mg PO DAILY PRN #1 tab 10/21/16 Medical Decision Making - Diagnostics EKG Interpretation: EKG: Complete interpretation has been separately recorded in the [facility] archive. Summary impression: Normal sinus rhythm, T-wave inversions unchanged from old EKG (Danielle Hansen) Imaging Results: Imaging Impressions Chest X-Ray 10/23/16 23:58 Impression: No acute conventional radiographic abnormality, or substantial change from 03/07/2015. Other Provider: ED PA DICTATION I evaluated and participated in the management of the patient. I also evaluated the patient independently. My co-signature indicates that I have reviewed this chart and I agree with the findings and plan of care as documented. My personal H&P findings include: This is a 71-year-old female with history of pulmonary hypertension who presents for chest pain. Her pain is concerning for ACS, however EKG and troponin are normal showing no ischemic changes. She had a clean catheterization in March of 2015. She does not feel comfortable going home as she still has mild chest pain which has mostly resolved. We plan to admit her to the hospitalist service. (Danielle Hansen) - Data Points Laboratory Results: Laboratory Results 10/23/16 23:55 10/23/16 23:55 10/23/16 10/23/16 10/23/16 23:55 23:55 23:55 WBC 9.51 10^3/uL H 10^3/uL (3.80-9.50) RBC 4.15 10^6/uL L 10^6/uL (4.18-5.33) Hgb 12.8 g/dL g/dL (12.6-16.3) Hct 39.6 % % (38.0-47.0) MCV 95.4 fL fL (81.5-99.8) MCH 30.8 pg pg (27.9-34.1) MCHC 32.3 g/dL L g/dL (32.4-36.7) RDW 12.9 % % (11.5-15.2) Plt Count 277 10^3/uL 10^3/uL (150-400) MPV 10.4 fL fL (8.7-11.7) Neut % (Auto) 77.7 % H % (39.3-74.2) Lymph % (Auto) 14.3 % L % (15.0-45.0) [place] % (Auto) 6.0 % % (4.5-13.0) Eos % (Auto) 1.1 % % (0.6-7.6) Baso % (Auto) 0.5 % % (0.3-1.7) Nucleat RBC Rel Count 0.0 % % (0.0-0.2) Absolute Neuts (auto) 7.39 10^3/uL H 10^3/uL (1.70-6.50) Absolute Lymphs (auto) 1.36 10^3/uL 10^3/uL (1.00-3.00) Absolute Monos (auto) 0.57 10^3/uL 10^3/uL (0.30-0.80) Absolute Eos (auto) 0.10 10^3/uL 10^3/uL (0.03-0.40) Absolute Basos (auto) 0.05 10^3/uL 10^3/uL (0.02-0.10) Absolute Nucleated RBC 0.00 10^3/uL 10^3/uL (0-0.01) Immature Gran % 0.4 % % (0.0-1.1) Immature Gran # 0.04 10^3/uL 10^3/uL (0.00-0.10) PT 13.1 SEC SEC (12.0-15.0) INR 1.00 (0.83-1.16) APTT 38.0 SEC SEC (23.0-38.0) Sodium 139 mEq/L mEq/L (134-144) Potassium 4.1 mEq/L mEq/L (3.5-5.2) Chloride 104 mEq/L mEq/L (97-110) Carbon Dioxide 25 mEq/l mEq/l (22-31) Anion Gap 10 mEq/L mEq/L (8-16) BUN 20 mg/dL mg/dL (7-23) Creatinine 0.9 mg/dL mg/dL (0.6-1.0) Estimated GFR > 60 Glucose 118 mg/dL H mg/dL (70-100) Calcium 11.1 mg/dL H mg/dL (8.5-10.4) Phosphorus 4.3 mg/dL mg/dL (2.5-4.5) Total Bilirubin 0.7 mg/dL mg/dL (0.1-1.4) Conjugated Bilirubin 0.4 mg/dL mg/dL (0.0-0.5) Unconjugated Bilirubin 0.3 mg/dL mg/dL (0.0-1.1) AST 33 IU/L IU/L (14-46) ALT 44 IU/L IU/L (9-52) Alkaline Phosphatase 62 IU/L IU/L (38-126) Troponin I < 0.012 ng/mL ng/mL (0-0.034) NT-Pro-B Natriuret Pep 40 pg/mL pg/mL (0-125) Total Protein 7.1 g/dL g/dL (6.3-8.2) Albumin 4.1 g/dL g/dL (3.5-5.0) Thompson 1.3 mEq/L H mEq/L (0.6-1.2) Departure - Departure Disposition: [facility] Inpatient Acute Clinical Impression: Pulmonary hypertension Chest pain Qualifiers: Chest pain type: unspecified Qualified Code(s): R07.9 - Chest pain, unspecified Condition: Good
[2016-10-24] MEDS ORDERED: ONDANSETRON 4 MG/2 ML VIAL IVP PRN (01:02)
[2016-10-24] MEDS ORDERED: oxyCODONE IR 5 MG TAB PO PRN (01:02)
[2016-10-24] MEDS ORDERED: ACETAMINOPHEN 325 MG TAB PO PRN (01:02)
[2016-10-24] MEDS ORDERED: ONDANSETRON DISINTEGRATING 4 MG TAB PO PRN (01:02)
[2016-10-24] MEDS ORDERED: SKIN ADHESIVE (DERMABOND) 1 EACH TP ONE (01:09)
--- NOTE | 2016-10-24 02:20 | GHP ---
[f rep st] HISTORY AND PHYSICAL DATE OF ADMISSION: 10/24/2016 CHIEF COMPLAINT: Chest pain. HISTORY OF PRESENT ILLNESS: This is a 71-year-old female with history of bipolar as well as a recen t admission here for altered mental status thought to be due to medications that had recently been s tarted, presents with chest pain. She is overall a difficult historian. She tells me that it felt like she was being seized. She says that it started in the middle of her chest, potentially radiate d slightly to the left. Unclear if this was exertional. It is currently gone. She said that it la sted for about 3 hours and just recently abated. It was not associated with any worsening shortness of breath, nausea, vomiting, diaphoresis. She has history of severe pulmonary hypertension, followed by Dr. Black. She had a cardiac catheter ization in March [address] Carolina, which showed normal coronary arteries; however, she did hav e severe pulmonary hypertension which was responsive to adenosine. PAST MEDICAL/SURGICAL HISTORY: 1. Recent admission for altered mental status. 2. Severe pulmonary hypertension. 3. JUAN R. 4. Chronic respiratory failure, on oxygen. 5. Bipolar disorder. 6. Chronic pain, on continuous narcotics. 7. History of diastolic dysfunction. MEDICATIONS: Please see medication reconciliation. ALLERGIES: Lamictal, modafinil. SOCIAL HISTORY: She lives at [facility]. She smokes. FAMILY HISTORY: Noncontributory. REVIEW OF SYSTEMS: A 10-point review of systems is conducted and is negative, except per HPI. PHYSICAL EXAM: She is resting comfortably in bed, in no acute distress. She is somnolent, however arousable to voice. HEENT shows her to be normocephalic, atraumatic. Cardiovascular exam shows her to have a regular rate and rhythm. No murmurs, rubs, or gallops. She has trace bilateral lower ex tremity pitting edema. Pulmonary exam shows her lungs to be clear bilaterally. She is not in any r espiratory distress. She is wearing oxygen. Abdominal exam is soft, nontender, nondistended. Skin exam shows no rash. exam shows no [place]. Neurologic exam shows her to be alert and oriented x3 . She is moving all extremities. Psychiatric exam shows normal mood and affect. LABORATORY DATA: White count is 9.5. INR is 1. Calcium is 11.1. [place] is 1.3. DATA: 1. I discussed this with Pilo Whatley PA-C. We will admit to PCU. 2. I personally viewed and interpreted her EKG, and compared it to old. She does have T-wave inver sions in leads V1, V2. She had these on her old EKG as well as additional T-wave inversions, which have now resolved. These were also in leads V3, V4, as well as her inferior leads. 3. Chest x-ray, which I personally reviewed and interpreted shows her to have clear lung [place] aterally. Shows a normal-sized heart. IMPRESSION AND PLAN: A 71-year-old female, who presents with chest pain. 1. Chest pain: She has had a cardiac workup, but it has been about a year and a half ago. This in cluded a catheterization with normal coronaries. She has an abnormal EKG, but this has not signific antly changed. It actually has slightly improved from prior. She has a history of pulmonary hypert ension which is severe. I think it is reasonable to admit her for cardiac rule out, including tropo nins, telemetry monitoring, treadmill stress test, which she says she can perform tomorrow morning. If her troponins become elevated, would involve Cardiology. At this point, I doubt that this repre sents a PE, as her chest pain has completely resolved without any other intervention. She is at her baseline oxygenation. She is not tachycardic. I doubt any other aortic pathology, given a normal chest x-ray. 2. Hypercalcemia: We will recheck this in the morning. This is new. Unsure exactly what this rep resents and it is mild. 3. Chronic respiratory failure, on continuous oxygen due to pulmonary hypertension: We will contin ue her oxygen for now. 4. Bipolar, recent admission for altered mental status: We will continue her psychiatric medicatio ns and follow her somnolence. She is quite sleepy when I am seeing her. 5. Obstructive sleep apnea. 6. Chronic pain, on continuous narcotics. 7. Code status. We will make her full code, which she was last time she was here. /[id number]/MODL
[2016-10-24] MEDS ORDERED: guaiFENesin 200 MG/10 ML UDL PO PRN (04:00)
[2016-10-24 04:20] LABS: % IMMATURE GRANULYOCYTES 0.4 % (0.0-1.1); ABSOLUTE IMMATURE GRANULOCYTES 0.03 10^3/uL (0.00-0.10); ADD DIFF? NO; ADD MORPH? NO; ADD SCAN? NO; ATYPICAL LYMPHOCYTE FLAG 0 (0-99); FRAGMENT RBC FLAG 0 (0-99); HEMATOCRIT 36.2 % (38.0-47.0); HEMOGLOBIN 11.8 g/dL (12.6-16.3); LEFT SHIFT FLG 0 (0-99); LIPEMIA HEMOLYSIS FLAG 80 (0-99); MEAN CELL HEMOGLOBIN 31.3 pg (27.9-34.1); MEAN CELL HEMOGLOBIN CONCENTR. 32.6 g/dL (32.4-36.7); MEAN PLATELET VOLUME 10.2 fL (8.7-11.7); PLATELET CLUMPS FLAG 0 (0-99); PLATELET COUNT 233 10^3/uL (150-400); RED BLOOD CELL COUNT 3.77 10^6/uL (4.18-5.33); RED CELL DISTRIBUTION WIDTH 13.2 % (11.5-15.2)
[2016-10-24 04:57] LABS: ANION GAP 10 mEq/L (8-16); CALCIUM 10.5 mg/dL (8.5-10.4); CARBON DIOXIDE 26 mEq/l (22-31); CHLORIDE 105 mEq/L (97-110); CREATININE 0.9 mg/dL (0.6-1.0); GLOMERULAR FILTRATION RATE > 60; GLUCOSE 80 mg/dL (70-100); SODIUM 141 mEq/L (134-144)
[2016-10-24 05:09] LABS: TROPONIN I < 0.012 ng/mL (0-0.034)
[2016-10-24 08:55] VITALS: BP 135/68; PULSE 65; RESP 18; TEMP 98.1; O2SAT 93
[2016-10-24] MEDS ORDERED: clonazePAM 0.5 MG TAB PO PRN (10:27)
[2016-10-24] MEDS ORDERED: LITHIUM CARBONATE ER 300 MG TAB PO SCH ×2 (10:30→21:00)
[2016-10-24] MEDS ORDERED: risperiDONE 0.5 MG TAB PO SCH (10:30)
--- NOTE | 2016-10-24 10:49 | GDS ---
[f rep st] DISCHARGE SUMMARY DISCHARGE DIAGNOSES: 1. Atypical chest pain. 2. Bipolar. 3. Severe pulmonary hypertension. 4. Obstructive sleep apnea. 5. Chronic respiratory failure. HISTORY: This is a 71-year-old female who presented with chest pain. It lasted for 3 hours and mireya t away. HOSPITAL COURSE: The patient was admitted and troponins were negative x2. She had no further episo douglas of chest pain. She did have a heart catheterization done 2 years ago which was completely jany l. It was not felt that any further testing should be done. She is being discharged back home. Nataly brian is to resume all of her home medicines. /[id number]/MODL
== END 2016-10-24 11:37 | disposition home or self-care (01) ==
LOC: EDUNIT# → F2W 10-24 01:48
PROVIDERS: ADMIT Student in an Organized Health Care Education/Training Program; ATTEND Internal Medicine
DX: R07.89 Other chest pain (principal); R53.83 Other fatigue; I27.2 Other secondary pulmonary hypertension; J96.10 Chronic respiratory failure, unspecified whether with hypoxia or hypercapnia; I10 Essential (primary) hypertension; G47.33 Obstructive sleep apnea (adult) (pediatric); F31.9 Bipolar disorder, unspecified
CPT/HCPCS: 71010; 93005; G0378

== ENCOUNTER 2016-10-28 07:23 | Emergency (ER) | payer OTHER, MEDICAID ==
--- NOTE | 2016-10-28 07:28 | EDPHY ---
HPI/HX/ROS/PE/MDM Narrative: CHIEF COMPLAINT: Right knee pain HPI: The patient is a 71-year-old female, brought in by EMS, complaining of right knee pain from multiple falls. She also complains of pain to her right hip and groin region as well. The patient reports multiple falls recently, last fall was last night. BP during transport 100/60. Patient is overall a poor historian. The patient was admitted here 10/20 for AMS due to recent change in medications. She was admitted again 10/24 with chest pain. She had a cardiac workup done and discharged later that day. REVIEW OF SYSTEMS: Aside from elements discussed in the HPI, a comprehensive 10-point review of systems was reviewed and is negative. PMH: Bipolar disorder, Sleep apnea, Anxiety, Hypertension, JUAN R, Respiratory failure on chronic O2, Chronic pain. SOCIAL HISTORY: Resides at [facility]. Cigarette smoker. PHYSICAL EXAM: General: Patient is alert, in no acute distress. ENT: Eyes are normal to inspection. ENT inspection normal. Neck: Normal inspection. Full range of motion. Respiratory: No respiratory distress. Breath sounds normal bilaterally. Cardiovascular: Regular rate and rhythm. Strong peripheral pulses. Abdomen: The abdomen is nontender to palpation. There are no peritoneal signs. There are normal bowel sounds. Back: Normal to inspection. No tenderness to palpation. Skin: Normal color. No rash. Warm and dry. Extremities: Normal appearance. Full range of motion. Several ecchymosis to right knee. Neuro: Normal motor function. Normal sensory function. ED Course: I reviewed the patient's past medical records. The patient was recently admitted on 10/24 with chest pain and 10/20 with altered mental status. She had psych evaluations on 10/11 and 10/12. Patient has been sleeping comfortably since initial assessment. X-ray imaging of her right hip and right knee are pending. X-rays are negative for fracture in hip or knee. Lab work is pending. 0930: Case Management is speaking with the patient. 1010: The patient is awake and able to ambulate without assistance. Plan to discharge home. MDM: This patient presents with mild knee injury. Her workup is negative. On re- evaluation she is ambulatory and appropriate for discharge. I see no signs of lithium toxicity, systemic infection or CVA. - Data Points Imaging Results: Imaging Impressions Hip X-Ray 10/28/16 07:29 Impression: Nothing acute identified. Right Knee, Four Views Clinical Indications: Pain following trauma. Findings: A fracture is not identified. The bone alignment is normal. Mild degenerative changes are noted, predominantly involving the medial and patellofemoral compartments. Multiple well-corticated ossicles are noted above the patella and may reflect calcification within the quadriceps tendon. No significant joint effusion is identified. Soft tissue swelling is seen medially. Impression: 1. Negative for fracture. 2. See above report for additional findings. Knee X-Ray 10/28/16 07:29 Impression: Nothing acute identified. Right Knee, Four Views Clinical Indications: Pain following trauma. Findings: A fracture is not identified. The bone alignment is normal. Mild degenerative changes are noted, predominantly involving the medial and patellofemoral compartments. Multiple well-corticated ossicles are noted above the patella and may reflect calcification within the quadriceps tendon. No significant joint effusion is identified. Soft tissue swelling is seen medially. Impression: 1. Negative for fracture. 2. See above report for additional findings. Imaging: I viewed and interpreted images myself Laboratory Results: Laboratory Results 10/28/16 09:30 10/28/16 09:30 10/28/16 10/28/16 09:30 09:30 WBC 10.57 10^3/uL H 10^3/uL (3.80-9.50) RBC 3.94 10^6/uL L 10^6/uL (4.18-5.33) Hgb 12.3 g/dL L g/dL (12.6-16.3) Hct 38.3 % % (38.0-47.0) MCV 97.2 fL fL (81.5-99.8) MCH 31.2 pg pg (27.9-34.1) MCHC 32.1 g/dL L g/dL (32.4-36.7) RDW 13.1 % % (11.5-15.2) Plt Count 226 10^3/uL 10^3/uL (150-400) MPV 10.2 fL fL (8.7-11.7) Neut % (Auto) 80.9 % H % (39.3-74.2) Lymph % (Auto) 11.2 % L % (15.0-45.0) [place] % (Auto) 6.8 % % (4.5-13.0) Eos % (Auto) 0.3 % L % (0.6-7.6) Baso % (Auto) 0.3 % % (0.3-1.7) Nucleat RBC Rel Count 0.0 % % (0.0-0.2) Absolute Neuts (auto) 8.56 10^3/uL H 10^3/uL (1.70-6.50) Absolute Lymphs (auto) 1.18 10^3/uL 10^3/uL (1.00-3.00) Absolute Monos (auto) 0.72 10^3/uL 10^3/uL (0.30-0.80) Absolute Eos (auto) 0.03 10^3/uL 10^3/uL (0.03-0.40) Absolute Basos (auto) 0.03 10^3/uL 10^3/uL (0.02-0.10) Absolute Nucleated RBC 0.00 10^3/uL 10^3/uL (0-0.01) Immature Gran % 0.5 % % (0.0-1.1) Immature Gran # 0.05 10^3/uL 10^3/uL (0.00-0.10) Sodium 140 mEq/L mEq/L (134-144) Potassium 4.1 mEq/L mEq/L (3.5-5.2) Chloride 108 mEq/L mEq/L (97-110) Carbon Dioxide 25 mEq/l mEq/l (22-31) Anion Gap 7 mEq/L L mEq/L (8-16) BUN 16 mg/dL mg/dL (7-23) Creatinine 0.8 mg/dL mg/dL (0.6-1.0) Estimated GFR > 60 Glucose 91 mg/dL mg/dL (70-100) Calcium 10.3 mg/dL mg/dL (8.5-10.4) [place] 1.1 mEq/L mEq/L (0.6-1.2) General Initial Vital Signs: Initial Vital Signs Temperature (C) 36.6 C 10/28/16 07:32 Heart Rate 60 10/28/16 07:32 Respiratory Rate 16 10/28/16 07:32 Blood Pressure 124/66 H 10/28/16 07:32 O2 Sat (%) 99 10/28/16 07:32 O2 Delivery Mode Room Air O2 (L/minute) 2 Allergies/Adverse Reactions: lamotrigine [From Lamictal] Allergy (Verified 10/12/16 05:42) modafinil [From Provigil] Allergy (Verified 10/12/16 05:42) Home Medications: Medication Instructions Recorded Omeprazole 40 mg PO DAILY 10/20/16 oxyCODONE/APAP 5/325 [Percocet 1 tab PO BID PRN 10/20/16 5/325 (*)] risperiDONE [Risperdal 0.5mg (*)] 0.5 mg PO BID 10/20/16 Melatonin [Melatonin 3 MG (*)] 3 mg PO HS #1 tab 10/21/16 clonazePAM [Klonopin (*)] 0.5 mg PO DAILY PRN #1 tab 10/21/16 Herbals/Supplements -Info Only 1 ea PO DAILY 10/24/16 [place] Carbonate ER [Lithobid 300 300 mg PO HS 10/24/16 mg (*)] [place] Carbonate ER [Lithobid 300 600 mg PO DAILY 10/24/16 mg (*)] Polyethylene Glycol 3350 [Miralax 17 gm PO DAILY PRN 10/24/16 17 gm (*)] Vitamin B Complex [B Complex] 1 each PO DAILY 10/24/16 Zolpidem Tartrate [Ambien 10 mg] 10 mg PO HS PRN 10/24/16 methYLPHENIDATE HCL [Ritalin 10mg 10 mg PO BID PRN 10/24/16 (*)] Departure - Departure Disposition: Home, Routine, Self-Care Clinical Impression: Knee contusion Qualifiers: Encounter type: initial encounter Laterality: right Qualified Code(s): S80.01XA - Contusion of right knee, initial encounter Condition: Good Instructions: Contusion in Adults (ED), Knee Pain (ED) Additional Instructions: Please followup with your primary care physician as needed. Referrals: Toyin Garcia MD [Primary Care Provider] - As per Instructions Report Scribed for: Selvin Cobos Report Scribed by: Fatoumata Camacho Date of Report: 10/28/16 Time of Report: 07:34 Physician Review and Approval Statement: Portions of this note were transcribed by a medical administrative technician. I personally performed a history, physical exam, medical decision making, and confirmed accuracy of information the transcribed note.
[2016-10-28 09:38] LABS: % IMMATURE GRANULYOCYTES 0.5 % (0.0-1.1); ABSOLUTE IMMATURE GRANULOCYTES 0.05 10^3/uL (0.00-0.10); ADD DIFF? NO; ADD MORPH? NO; ADD SCAN? NO; ATYPICAL LYMPHOCYTE FLAG 10 (0-99); FRAGMENT RBC FLAG 0 (0-99); HEMATOCRIT 38.3 % (38.0-47.0); HEMOGLOBIN 12.3 g/dL (12.6-16.3); LEFT SHIFT FLG 0 (0-99); LIPEMIA HEMOLYSIS FLAG 80 (0-99); MEAN CELL HEMOGLOBIN 31.2 pg (27.9-34.1); MEAN CELL HEMOGLOBIN CONCENTR. 32.1 g/dL (32.4-36.7); MEAN CELL VOLUME 97.2 fL (81.5-99.8); MEAN PLATELET VOLUME 10.2 fL (8.7-11.7); PLATELET CLUMPS FLAG 10 (0-99); PLATELET COUNT 226 10^3/uL (150-400); RED BLOOD CELL COUNT 3.94 10^6/uL (4.18-5.33); RED CELL DISTRIBUTION WIDTH 13.1 % (11.5-15.2)
[2016-10-28 09:45] VITALS: O2SAT 97
[2016-10-28 10:00] LABS: ANION GAP 7 mEq/L (8-16); CALCIUM 10.3 mg/dL (8.5-10.4); CARBON DIOXIDE 25 mEq/l (22-31); CHLORIDE 108 mEq/L (97-110); CREATININE 0.8 mg/dL (0.6-1.0); GLOMERULAR FILTRATION RATE > 60; GLUCOSE 91 mg/dL (70-100); LITHIUM 1.1 mEq/L (0.6-1.2); POTASSIUM 4.1 mEq/L (3.5-5.2); SODIUM 140 mEq/L (134-144)
[2016-10-28 11:29] VITALS: BP 109/68; PULSE 70; RESP 18; TEMP 99.7
== END 2016-10-28 11:30 | disposition home or self-care (01) ==
LOC: EDUNIT#
DX: S80.01XA Contusion of right knee, initial encounter (principal); I10 Essential (primary) hypertension; F17.210 Nicotine dependence, cigarettes, uncomplicated; W18.39XA Other fall on same level, initial encounter

== ENCOUNTER 2017-12-30 08:16 | Emergency (ER) | payer OTHER, MEDICAID ==
--- NOTE | 2017-12-30 08:20 | EDPHY ---
H & P Time Seen by Provider: 12/30/17 08:20 - Medical/Surgical History Hx Asthma: No Hx Chronic Respiratory Disease: No Hx Diabetes: No Hx Cardiac Disease: No Hx Renal Disease: No Hx Cirrhosis: No Hx Alcoholism: No Hx HIV/AIDS: No Hx Splenectomy or Spleen Trauma: No Other PMH: BIPOLAR, HTN, ANXIETY, SLEEP APNEA, SCIATICA, pulmonary htn - Social History Smoking Status: Current some day smoker Constitutional: Initial Vital Signs Temperature (C) 36.8 C 12/30/17 08:30 Heart Rate 64 12/30/17 08:30 Respiratory Rate 16 12/30/17 08:30 Blood Pressure 145/67 H 12/30/17 08:30 O2 Sat (%) 90 L 12/30/17 08:30 O2 Delivery Mode Room Air Allergies/Adverse Reactions: lamotrigine [From Lamictal] Allergy (Verified 10/12/16 05:42) modafinil [From Provigil] Allergy (Verified 10/12/16 05:42) Home Medications: Medication Instructions Recorded Omeprazole 40 mg PO DAILY 10/20/16 oxyCODONE/APAP 5/325 [Percocet 1 tab PO BID PRN 10/20/16 5/325 (*)] risperiDONE [Risperdal 0.5mg (*)] 0.5 mg PO BID 10/20/16 Melatonin [Melatonin 3 MG (*)] 3 mg PO HS #1 tab 10/21/16 clonazePAM [Klonopin (*)] 0.5 mg PO DAILY PRN #1 tab 10/21/16 Herbals/Supplements -Info Only 1 ea PO DAILY 10/24/16 [place] Carbonate ER [Lithobid 300 300 mg PO HS 10/24/16 mg (*)] [place] Carbonate ER [Lithobid 300 600 mg PO DAILY 10/24/16 mg (*)] Polyethylene Glycol 3350 [Miralax 17 gm PO DAILY PRN 10/24/16 17 gm (*)] Vitamin B Complex [B Complex] 1 each PO DAILY 10/24/16 Zolpidem Tartrate [Ambien 10 mg] 10 mg PO HS PRN 10/24/16 methYLPHENIDATE HCL [Ritalin 10mg 10 mg PO BID PRN 10/24/16 (*)] Medical Decision Making - Diagnostics Imaging Results: Imaging Impressions Abdomen Ultrasound 12/30/17 08:25 Impression: Limited study due to patient compliance. 1. Cholelithiasis and mildly distended gallbladder. There is also extra and intrahepatic ductal dilatation. Might consider MRCP or ERCP evaluation if liver enzymes are abnormal. 2. Fatty liver. Findings and recommendations discussed with Manohar Quinteros MD at 912 hour, . Imaging: Discussed imaging studies w/ yardage caller Radiologist ED Course/Re-evaluation: CHIEF COMPLAINT: Abdominal pain HISTORY OF PRESENT ILLNESS: The patient is a 72 y/o female with a history of bipolar disorder arriving via EMS from her adult care facility, the [facility], who complains of abdominal pain onset this morning. She reports she woke at 05:00 and felt normal. When she got out of bed later at 07:00, about 1.5 hours ago, she then noticed abdominal pain. Her pain is primarily located in her RUQ and she has not felt pain like this previously. No vomiting, diarrhea, fever, cough, recent illness, or recent trauma. No history of abdominal surgeries apart from what she reports as a "crotch surgery" to "look at my lungs." EMS notes she was asymptomatic for them upon arrival at the facility and en route here and did not begin complaining of abdominal pain until arrival in the ED. REVIEW OF SYSTEMS: A comprehensive 10 system review of systems is otherwise negative aside from elements mentioned in the history of present illness PHYSICAL EXAM: HR, BP, O2 Sat, RR. Temp noted General Appearance: Alert, well hydrated, appropriate, and non-toxic appearing. Smells of alcohol. Head: Atraumatic without scalp tenderness or obvious injury Eyes: Pupils equal, round, reactive to light and accommodation, EOMI, no trauma , no injection. Nose: Atraumatic, no rhinorrhea, clear. Throat: Mucus membranes moist. Neck: Supple, nontender, no lymphadenopathy. Respiratory: No retractions, no distress, no wheezes, and no accessory muscle use. Lungs are clear to auscultation bilaterally. Cardiovascular: Regular rate and rhythm, no murmurs, rubs, or gallops. Good capillary refill all extremities. Gastrointestinal: Abdomen is soft, RUQ tenderness with positive Kelley's sign, non-distended, no masses, no rebound, no guarding, no peritoneal signs. Musculoskeletal: Normal active ROM of all extremities, atraumatic. Neurological: Alert, appropriate, and interactive. Nonfocal. Skin: No rashes, good turgor, no nodules on palpation. Past medical history: Bipolar disorder- [place], hypertension, anxiety, sleep apnea, sciatica, pulmonary hypertension. Past surgical history: "Crotch surgery" Family history: noncontributory Social history: Lives at [facility] in [place]. Not employed. DIAGNOSTICS/PROCEDURES/CRITICAL CARE TIME: Abdominal US: negative DIFFERENTIAL DIAGNOSIS: The differential diagnosis for the patient's abdominal pain included but was not limited to ovarian cyst, pelvic inflammatory disease, ovarian torsion, urinary tract infection, ectopic , cholecystitis, and appendicitis. MEDICAL DECISION MAKING: This is a 72 y/o female with a history of bipolar disorder and hypertension who presents with RUQ pain onset this morning. She has RUQ tenderness on exam. Plan for IV, labs, UA, abdominal US. 1L IV NS ordered. US is negative. Labs unremarkable apart from mildly elevated AST. Reassessed patient and discussed findings. She endorses drinking too much alcohol night. She is feeling improved. Plan for discharge home to her facility with standard care and follow up instructions. - Data Points Laboratory Results: Laboratory Results 12/30/17 08:15 12/30/17 08:15 12/30/17 12/30/17 12/30/17 08:29 08:15 08:15 WBC 7.93 10^3/uL 10^3/uL (3.80-9.50) RBC 4.67 10^6/uL 10^6/uL (4.18-5.33) Hgb 14.2 g/dL g/dL (12.6-16.3) POC Hgb 15.0 gm/dL gm/dL (12.6-16.3) Hct 44.3 % % (38.0-47.0) POC Hct 44 % % (38-47) MCV 94.9 fL fL (81.5-99.8) MCH 30.4 pg pg (27.9-34.1) MCHC 32.1 g/dL L g/dL (32.4-36.7) RDW 13.2 % % (11.5-15.2) Plt Count 221 10^3/uL 10^3/uL (150-400) MPV 10.8 fL fL (8.7-11.7) Neut % (Auto) 66.8 % % (39.3-74.2) Lymph % (Auto) 23.7 % % (15.0-45.0) [place] % (Auto) 7.6 % % (4.5-13.0) Eos % (Auto) 1.4 % % (0.6-7.6) Baso % (Auto) 0.4 % % (0.3-1.7) Nucleat RBC Rel Count 0.0 % % (0.0-0.2) Absolute Neuts (auto) 5.30 10^3/uL 10^3/uL (1.70-6.50) Absolute Lymphs (auto) 1.88 10^3/uL 10^3/uL (1.00-3.00) Absolute Monos (auto) 0.60 10^3/uL 10^3/uL (0.30-0.80) Absolute Eos (auto) 0.11 10^3/uL 10^3/uL (0.03-0.40) Absolute Basos (auto) 0.03 10^3/uL 10^3/uL (0.02-0.10) Absolute Nucleated RBC 0.00 10^3/uL 10^3/uL (0-0.01) Immature Gran % 0.1 % % (0.0-1.1) Immature Gran # 0.01 10^3/uL 10^3/uL (0.00-0.10) POC Sodium 143 mEq/L mEq/L (135-145) Sodium 143 mEq/L mEq/L (135-145) POC Potassium 4.2 mEq/L mEq/L (3.3-5.0) Potassium 4.6 mEq/L mEq/L (3.3-5.0) POC Chloride 105 mEq/L mEq/L (97-110) Chloride 106 mEq/L mEq/L (97-110) Carbon Dioxide 29 mEq/l mEq/l (22-31) Anion Gap 8 mEq/L mEq/L (8-16) POC BUN 16 mg/dL mg/dL (7-23) BUN 17 mg/dL mg/dL (7-23) Creatinine 0.9 mg/dL mg/dL (0.6-1.0) POC Creatinine 0.9 mg/dL mg/dL (0.6-1.0) Estimated GFR > 60 Glucose 109 mg/dL H mg/dL (70-100) POC Glucose 113 mg/dL H mg/dL (70-100) Calcium 9.7 mg/dL mg/dL (8.5-10.4) Total Bilirubin 0.7 mg/dL mg/dL (0.1-1.4) Conjugated Bilirubin 0.3 mg/dL mg/dL (0.0-0.5) Unconjugated Bilirubin 0.4 mg/dL mg/dL (0.0-1.1) AST 56 IU/L H IU/L (14-46) ALT 48 IU/L IU/L (9-52) Alkaline Phosphatase 72 IU/L IU/L (38-126) Total Protein 6.8 g/dL g/dL (6.3-8.2) Albumin 4.1 g/dL g/dL (3.5-5.0) Lipase 94 IU/L IU/L (23-300) Medications Given: Discontinued Medications Sodium Chloride (Ns) 1,000 mls @ 0 mls/hr IV EDNOW ONE; Wide Open PRN Reason: Protocol Stop: 12/30/17 08:26 Last Admin: 12/30/17 08:25 Dose: 1,000 mls Point of Care Test Results: Chemistry 12/30/17 08:29 POC Sodium 143 mEq/L mEq/L (135-145) POC Potassium 4.2 mEq/L mEq/L (3.3-5.0) POC Chloride 105 mEq/L mEq/L (97-110) POC BUN 16 mg/dL mg/dL (7-23) POC Creatinine 0.9 mg/dL mg/dL (0.6-1.0) POC Glucose 113 mg/dL H mg/dL (70-100) ISTAT H&H 12/30/17 08:29 POC Hgb 15.0 gm/dL gm/dL (12.6-16.3) POC Hct 44 % % (38-47) Departure - Departure Disposition: Home, Routine, Self-Care Clinical Impression: Gastroenteritis, alcoholic Condition: Good Instructions: Gastroenteritis (ED) Additional Instructions: 1. Continue taking all medications as directed. Avoid abuse of alcohol. 2. Follow up with your primary care provider on Tuesday for unimproved symptoms. 3. Return for worsening of condition. Referrals: Toyin Garcia MD [Primary Care Provider] - As per Instructions Report Scribed for: Manohar Quinteros Report Scribed by: Alba Alfaro Date of Report: 12/30/17 Time of Report: 08:47
[2017-12-30] MEDS ORDERED: NS 1,000 ML IV ONE (08:25)
[2017-12-30 08:31] LABS: PLATELET COUNT 221 10^3/uL (150-400)
[2017-12-30] MEDS ORDERED: MAG HYDROX/AL HYDROX/SIMETH 30 ML UDCUP PO ONE (09:14)
[2017-12-30] MEDS ORDERED: LIDOCAINE 2% VISCOUS 15 ML UDCUP PO ONE (09:14)
[2017-12-30] MEDS ORDERED: HYOSCYAMINE SULFATE 0.125 MG TAB PO ONE (09:14)
[2017-12-30 09:43] VITALS: BP 150/99
== END 2017-12-30 09:43 | disposition home or self-care (01) ==
LOC: EDUNIT#
DX: K52.9 Noninfective gastroenteritis and colitis, unspecified (principal)
CPT/HCPCS: 82435-PO; 82565-PO; 82947-PO; 84132-PO; 84295-PO; 84520-PO; 85014-PO